=== PATIENT | male | born 1980 | race Caucasian/White ===

== ENCOUNTER 2017-04-10 09:29 | Inpatient (IN) | payer OTHER ==
[2017-04-10] VITALS (11 sets, daily range): BP systolic 103–132; BP diastolic 63–82
[~2017-04-10] VITALS: Ht 175.3 cm; Wt 71.7 kg
[~2017-04-10 09:29] MED LIST: Dexamethasone 20mg/5ml IVP ONE; ceFAZolin 1gm/50ml Premix 50 ML IV ONE
[2017-04-10] MEDS ORDERED: LEXAPRO10 MG ORAL (10:12)
[2017-04-10] MEDS ORDERED: LR 1000ml 1,000 ML IVLG SCH (11:42)
--- NOTE | 2017-04-10 11:43 | Anethesia Preoperative Eval ---
Anesthesia Pre-op PMH/ROS General Date of Evaluation: Apr 10, 2017 Time of Evaluation: 13:26 Anesthesiologist: Evelio ASA Score: ASA 1 Mallampati Score Class I : Soft palate, uvula, fauces, pillars visible Class II: Soft palate, uvula, fauces visible Class III: Soft palate, base of uvula visible Class IV: Only hard plate visible Mallampati Classification: Class I Surgeon: Anju Diagnosis: Neck Pain Surgical Procedure: ACDF C5-6 Anesthesia History: none Family History: no anesthesia problems Allergies: Coded Allergies: CODEINE (Verified Allergy, Intermediate, vomiting , 04/10/17) Medications: see eMAR Past Medical History Gastrointestinal/Genitourinary: Reports: other - Renolithiasis PSxH Narrative: [place] Shoulder SX Anesthesia Pre-op Phys. Exam Physician Exam Last Vital Signs Date Time Temp Pulse Resp B/P (MAP) Pulse Ox O2 Delivery O2 Flow Rate FiO2 04/10/17 09:51 98.0 78 18 132/82 97 Room Air Constitutional: NAD Neurologic: CN 2-12 intact Cardiovascular: RRR Respiratory: CTA Gastrointestinal: S/NT/ND Airway Exam Mallampati Score: Class I MO: full ROM: limited Teeth: intact Anesthesia Pre-op A/P Risk Assessment & Plan Assessment: ASA 1 Plan: GA, BIS, Glidescope Status Change Before Surgery: No Pre-Antibiotics Dru Grams Ancef IV Given Within 1 Hr of Incision: Yes Time Given: 13:46 Samuel Fraser MD Apr 10, 2017 11:43
[2017-04-10] MEDS ORDERED: fentaNYL 100 mcg/2 mL IV PRN (11:45)
[2017-04-10] MEDS ORDERED: Metoclopramide 10mg/2ml Inj IVP PRN (11:45)
[2017-04-10] MEDS ORDERED: Norco 5mg/325mg tab ORAL PRN (11:45)
[2017-04-10] MEDS ORDERED: Norco 7.5mg/325mg tab ORAL PRN (11:45)
[2017-04-10] MEDS ORDERED: Ketorolac 60mg Inj IV PRN (11:45)
[2017-04-10] MEDS ORDERED: DiphenhydrAMINE 50mg/ml Inj IVP PRN (11:45)
[2017-04-10] MEDS ORDERED: oxyCODONE HCL/Acetaminophen 5/325mg ORAL PRN (11:45)
[2017-04-10] MEDS ORDERED: Ketorolac 30mg Inj IV PRN (11:45)
[2017-04-10] MEDS ORDERED: Hydromorphone 0.5mg/0.5ml inj IVP PRN (11:45)
[2017-04-10] MEDS ORDERED: LORazepam Inj 2mg/ml 1ml IV PRN (11:45)
[2017-04-10] MEDS ORDERED: Atropine Inj 1mg/10ml Syr IV PRN (11:45)
[2017-04-10] MEDS ORDERED: Midazolam 2mg/2ml Inj IVP PRN (11:45)
[2017-04-10] MEDS ORDERED: Norco 10mg/325mg tab ORAL PRN (12:30)
[2017-04-10] MEDS ORDERED: Acetaminophen (Non formulary) 100 ML IV ONE (12:30)
--- NOTE | 2017-04-10 12:30 | Pre-Procedure Note/Attestation ---
Pre-Procedure Note/Attestation Complete Prior to Procedure Planned Procedure: not applicable Procedure Narrative: C5-C6 ADR, possible ACDF Indications for Procedure Pre-Operative Diagnosis: Post Trauma Cervical HNP Attestation I attest that I discussed the nature of the procedure; its benefits; risks and complications; and alternatives (and the risks and benefits of such alternatives ), prior to the procedure, with the patient (or the patient's legal it sales representative). I attest that, if there was a reasonable possibility of needing a blood transfusion, the patient (or the patient's legal it sales representative) was given the [facility] standardized written summary, pursuant to the Rex Jose Blood Safety Act ([place] Health and Safety Code # 1645, as amended). I attest that I re-evaluated the patient just prior to the surgery and that there has been no change in the patient's H&P, except as documented below: KE KO Apr 10, 2017 12:30
[2017-04-10] MEDS ORDERED: Thrombin 5000 units TOPIC ONE (13:28)
[2017-04-10] MEDS ORDERED: Bacitracin 50000 Units Vial ONE (13:29)
[2017-04-10] MEDS ORDERED: Lidocaine 1% 10mg/ml/Epi 0.005mg/ml 30ml vial INJ ONE (13:29)
[2017-04-10] MEDS ORDERED: Lidocaine 1% Plain 30 ml INJ ONE ×2 (13:29→13:30)
[2017-04-10] MEDS ORDERED: fentaNYL 100 mcg/2 mL IV ONE (13:30)
[2017-04-10] MEDS ORDERED: Lidocaine 1% MPF 10mg/ml 5ml ONE (13:30)
[2017-04-10] MEDS ORDERED: Neostigmine 1mg/ml 10ml Inj ONE (13:30)
[2017-04-10] MEDS ORDERED: Propofol 1,000mg/ 100ml btl IV ONE (13:30)
[2017-04-10] MEDS ORDERED: Zemuron 50mg/5ml Inj IV ONE (13:30)
[2017-04-10] MEDS ORDERED: LR 1000ml ONE (13:30)
[2017-04-10] MEDS ORDERED: Labetalol 5mg/ml 20ml vial IV ONE (13:30)
[2017-04-10] MEDS ORDERED: NS Irrig 1000ml ONE (13:30)
[2017-04-10] MEDS ORDERED: Glycopyrrolate 0.2mg/ml 1ml Vial ONE (13:30)
[2017-04-10] MEDS ORDERED: Sterile Water Irrig 1000ml IRRIG ONE (13:30)
--- NOTE | 2017-04-10 14:35 | 48 Hour Post Anesthesia Eval ---
Post Anesthesia Evaluation Procedure: ADR C5-6 Date of Evaluation: Apr 10, 2017 Time of Evaluation: 18:32 Blood Pressure Systolic: 118 0: 74 Pulse Rate: 73 Respiratory Rate: 18 Temperature (Fahrenheit): 98.2 O2 Sat by Pulse Oximetry: 99 Airway: patent Nausea: No Vomiting: No Pain Intensity: 3 Hydration Status: adequate Cardiopulmonary Status: Stable Mental Status/LOC: patient returned to baseline Follow-up Care/Observations: 0 Post-Anesthesia Complications: 0 Follow-up care needed: ready to discharge Samuel Fraser MD Apr 10, 2017 14:35
--- NOTE | 2017-04-10 14:35 | Immediate Post-Op Evaluation ---
Immediate Post-Op Evalulation Immediate Post-Op Evalulation Procedure: ADR C5-6 Date of Evaluation: Apr 10, 2017 Time of Evaluation: 16:22 IV Fluids: 1000 LR Blood Products: 0 Estimated Blood Loss: 25 Urinary Output: 0 Blood Pressure Systolic: 109 Blood Pressure Diastolic: 65 Pulse Rate: 76 Respiratory Rate: 16 O2 Sat by Pulse Oximetry: 100 Temperature (Fahrenheit): 97.8 Pain Score (1-10): 3 Nausea: No Vomiting: No Complications 0 Patient Status: awake, reacts, patent, none Hydration Status: adequate Dru Grams Ancef IV Given Within 1 Hr of Incision: Yes Time Given: 13:46 Samuel Fraser MD Apr 10, 2017 14:35
[2017-04-10] MEDS ORDERED: Naloxone 0.4mg/ml Inj IVP PRN (16:00)
--- NOTE | 2017-04-10 16:00 | Brief Operative Note ---
Immediate Post Operative Note Operative Note Pre-op Diagnosis: Post Trauma Cervical HNP Procedure: C5-6 ADR Post-op Diagnosis: same as pre-op Findings: consistent w/pre-op dx studies Surgeon: Anju Product Safety Associate: Martha Anesthesiologist: Evelio Anesthesia: general Specimen: none Complications: none Condition: stable Fluids: anesthesia Estimated Blood Loss: minimal Drains: none Implant(s) used?: Yes KE KO Apr 10, 2017 16:00
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
[2017-04-10] MEDS ORDERED: D5 1/2NS 1,000 ML IV SCH (18:30)
[2017-04-10] MEDS ORDERED: Morphine Sulfate 4mg/ml Inj IM PRN (18:30)
[2017-04-10] MEDS ORDERED: Chloraseptic Spray 20mL Bottle ORAL PRN (19:00)
--- NOTE | 2017-04-10 22:15 | Operative Note - Dictated ---
DATE OF OPERATION: 04/10/2017 PREOPERATIVE DIAGNOSIS: Posttraumatic cervical herniated nucleus pulposus. POSTOPERATIVE DIAGNOSIS: Posttraumatic cervical herniated nucleus pulposus. OPERATIVE PROCEDURE: 1. Anterior diskectomy with decompression spinal cord/nerve roots. 2. Diskectomy, C5-C6, anterior. 3. Anterior artificial disk placement C5-C6. 4. Intraoperative fluoroscopy interpreted by surgeon. 5. High-powered microscopic dissection. 6. SSEP monitoring. SURGEON: Victor Hugo Rene, Ph.D. M.Venkatesh. CHIEF PAYROLL CLERK: AILYN Jiang. ANESTHESIOLOGIST: Samuel Fraser M.D. ANESTHESIA: General with intubation. ESTIMATED BLOOD LOSS: Minimal. COMPLICATIONS: None. POSTOPERATIVE CONDITION: Good/Stable. SPECIMENS: None. DESCRIPTION OF PROCEDURE: The patient was brought to the operating room in the supine position. General anesthesia with intubation was induced. IV antibiotics and IV Decadron were administered 30 minutes prior to incision time. Incision level placement was determined with a cross-table fluoroscopic-guide imaging with markers. Level was marked. The patient's anterior cervical spine was sterilely prepped and draped free in usual sterile fashion. Transverse incision on the left with the appropriate interval was sharply placed in dermis and epidermis. Electrocautery dissection was carried to the subcutaneous tissue to the level of the platysmas muscle that was identified, isolated, and transected in line with the incision. Blunt dissection was carried through the deep cervical and pretracheal fascia to the midline between the right and left longus colli muscles. The dissection was carried medial to the carotid sheath in the medial aspect of the sternocleidomastoid muscle left. Spinal needle bent at 90 degree angle to avoid greater than 3 mm of penetration. The disk was placed under direct observation. Cross-table imaging was obtained demonstrating a correct level as C5-C6. Level was marked. Needle removed. Retractors placed. Annulotomy was performed. Diskectomy to the posterior longitudinal ligament. Midline rent noted. Posterior longitudinal ligament resected with herniated disc fragment retrieved. No dural tears or leaks occurred anytime during the procedure. SSEP monitoring stable. The appropriate dimension trial was determined utilizing direct observation and fluoroscopic guidance. Subsequent placement of the disk was proceeded with appropriate technique of drilling, real cuts, and disk replacement. The patient remained stable at all times. Fluoroscopic guidance demonstrated excellent alignment. Wound was irrigated with antibiotic-containing saline. Bleeding bone was cauterized with application of sterile wax. FloSeal applied. Reapproximation sequentially of the platysmas muscle and subcutaneous tissue. Surgical strips applied followed with sterile bandage. The patient was awakened, extubated in the operating room, and transported to postop recovery in good stable condition. Victor Hugo Rene M.D. DR: HARDIK JOB#: [id number] CC:
[2017-04-10] MEDS ORDERED: D5 1/2NS 1000ml IV ONE (22:19)
[2017-04-10] MEDS ORDERED: ceFAZolin sod 1 GM in D5W 55 ML IV SCH (22:30)
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
== END 2017-04-10 22:20 | disposition home or self-care (01) | DRG 518 ==
LOC: SDSOVERFLO 09:29 → 3E 18:06
PROC: 0RR30JZ Replacement of Cervical Vertebral Disc with Synthetic Substitute, Open Approach (ICD-10-PCS; principal; 2017-04-10 11:00)
DX: M50.222 Other cervical disc displacement at C5-C6 level (principal)
CPT/HCPCS: 36415; 72040; 76001; 86850; 86900; 86901; 87081; 94003; 94150; J2405; J2710